=== PATIENT | female | born 1930 | race Caucasian/White ===

== ENCOUNTER 2016-10-06 08:12 | Observation (INO) | payer MEDICARE, OTHER ==
[~2016-10-06] VITALS: Ht 160 cm; Wt 43.3 kg
[~2016-10-06 08:12] MED LIST: AMLODIPINE BES10 MG PO; AMLODIPINE10 M2 PO; ASPIRIN 325MG325 MG PO; DORZOLAMIDE HYD10 M1 OP; LUMIGAN 2.5 ML2.5 M1 OP; MEDROL 4MG. DOSE4 MG PO; NIACIN250 MG PO; ULTRAM 50 MG TA50 MG PO
[2016-10-06 08:16] VITALS: BP 142/105
--- NOTE | 2016-10-06 08:34 | Emergency Room Report ---
History of Present Illness Time Seen by MD Guardado Presenting Problem in Triage Pt arrived:Walked Presenting Problem:Pt states she has been dizzy and nausea since friday, pt denies any vommitting. 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 N Clinical Suspician of Infection? N Mental Status: 1 - Regular (Normal Baseline) Sepsis Risk:Low Sepsis Risk Have you (or family members/close friends) recently traveled outside the [place]? N If Yes, where/when: Have you had exposure to infectious disease within the past month? N TB? Other? Specify: Source patient, RN notes reviewed, family, old records Exam Limitations no limitations Comment wf this week having episodes of dizzyness and nausea with no syncope or chest pain and no neuro sx otherwise reported Cardiac Chest Pain Chest pain indicative of cardiac No Timing/Duration this morning Severity moderate ALLERGIES Coded Allergies: MDX - Acetaminophen (From LORTAB 5/325) (01/04/15) MDX - Hydrocodone (From LORTAB 5/325) (01/04/15) Home Medications Reported Medications Amlodipine Besylate (Amlodipine) 5 MG PO DAILY Niacin (Niacin Sr 250MG Cap) 250 MG PO DAILY Bimatoprost (Lumigan 0.1% Ophth Soln) 1 DROP OP QHS DORZOLAMIDE HCL (Trusopt) 1 DROP OP BID History Medical History General CAD? No Angina: No LA: No Hypertension? Yes Hyperlipidemia? No CHF? No DVT? No PE? No COPD? No Asthma? No Anemia? No GERD? No Gastric ulcers? No GI Bleed? No Hernia? No Thyroid Problems? No Hypothyroidism? No CVA? No Seizures? No Diabetes? No Renal Insuffiency? No End Stage Renal Disease? No UTI? No Stones? No BPH? No GB Disease: No Nephritic Syndrome? No Asplenia? No Hepatitis? No Sickle Cell Disease? No Arthritis? No Migraines? No Cataracts? Yes Glaucoma? Yes MRSA? No HIV? No TB? No Anxiety? No Depression? No Cancer? No More? No Additional hx: 1. Diverticulitis 2. Bilateral Detached retinas Immunization Hx DT/Tetanus 5-10 Years Ago Flu [id number] Flu Season Pneumonia Received In Past Surgical Hx Previous Surgery?Y R FOOT NECK SX Family History Family Hx Diabetes No CAD No Hypertension Yes Hyperlipidemia No Cancer No TB No Social History Smoking Hx Smoker: Never Smoker Tobacco: No Type N/A Packs/day N/A Are you/the child exposed to second-hand smoke: No Alcohol Alcohol: No Drugs none Review of Systems All Other Systems Reviewed and Negative Constitutional see HPI, denies fever, weakness Eyes denies drainage ENT denies: ear discharge, epistaxis, throat pain. Respiratory denies cough, denies shortness of breath, denies wheezing Cardiovascular denies chest pain, denies palpitations, denies syncope Gastrointestinal see HPI, denies abdominal pain, nausea, denies vomiting Genitourinary denies: dysuria, frequency, hesitancy, hematuria. Musculoskeletal denies back pain, denies joint pain, denies neck pain Skin denies rash Psychiatric/Neurological see HPI, denies headache, denies seizure, other Physical Exam Vital Signs Vital Signs Date Time Temp Pulse Resp B/P Pulse O2 O2 Flow FiO2 Ox Delivery Rate 10/06 0902 83 20 126/83 98 / 0816 98.2 72 20 142/105 98 - WBC >12,000 or <4,000 or 10% bands? 2 or more SIRS Criteria Met? B/P:126/83 MAP:117 Creatinine >2.0? UA output<0.5ml/kg/hr for 2 hrs? Platelet count >100,000? Lactate >2.0mmol/1? INR >1.2 or PTT > than 60 sec? Evidence of Organ Dysfunction? Provider documented clinical suspician of infection? N Sepsis Criteria Count: 1 Sepsis Risk: Low Sepsis Risk General Appearance no apparent distress Eye Exam - bilateral eye PERRL, bilateral eye EOMI Comment no nystagmus Ear, Nose, Throat normal ENT inspection, no evid of tongue biting Neck non-tender, pos bruit or transmitted murmur Respiratory Status No: respiratory distress. Lung Sounds bilateral: lungs clear. Cardiovascular systolic murmur, gallop/S4, irregularly irregular Peripheral Pulses Pulses normal Yes Gastrointestinal soft Extremities normal inspection Strength 4 Upper Ext (L), 4 Upper Ext (R), 4 Lower Ext (L), 4 Lower Ext (R) Neurologic alert, training facilitator II-XII nml as tested, no motor/sensory deficits Glascow Coma Scale Glascow Coma Scale Response Value EYE response: 4 Spontaneously 4 MOTOR response: 6 OBEYS 6 VERBAL response: 5 Oriented & Converses 5 Total 15 Reflexes Reflexes normal No Mental status normal mood/affect Skin intact Medical Decision Making LABS/Meds/Orders Pt receiving controlled substance in ED? No Results/Orders Laboratory Tests 10/06/16 0900: Urine Color YELLOW, Urine Appearance CLEAR, Urine pH 7.5, Ur Specific [place] 1.010, Urine Protein NEGATIVE, Urine Ketones NEGATIVE, Urine Blood TRACE-INTACT, Urine Nitrate NEGATIVE, Urine Bilirubin NEGATIVE, Urine Urobilinogen 0.2, Ur Leukocyte Esterase NEGATIVE, Urine RBC OCC, Urine WBC OCC, Ur Squamous Epith Cells OCC, Urine Bacteria 2+, Urine Mucus 2+, Urine Glucose NEGATIVE 10/06/16 08: TSH 1.34, Thyroxine (T4) 7.5 10/06/16 08: Sodium 134 L, Potassium 4.0, Chloride 98, Carbon Dioxide 30, BUN 12, Creatinine 0.6, Estimated Creat Clear 49 L, Estimated GFR (MDRD) 95, Glucose 97, Calcium 9.3, Total Bilirubin 0.6, AST 18, ALT 22, Alkaline Phosphatase 83, Creatine Kinase 92, CK-MB (CK-2) Rel Index 2.3, CK and CKMB Interp 2.1, Troponin I < 0.02 , Total Protein 8.1, Albumin 3.9, Globulin 4.2 H, Albumin/Globulin Ratio 0.9 L , WBC 4.9, RBC 3.83 L, Hgb 12.5, Hct 39.0, MCV 102.0 H, RDW 12.5, Plt Count 375, MPV 5.3 L, Gran % 78.0, Gran # 3.8, Lymphocytes % 14.0, Monocytes % 7.1, Eosinophils % 0.4, Basophils % 0.5, Lymphocytes # 0.7, Monocytes # 0.3, Eosinophils # 0.0, Basophils # 0.0, PUBS MCHC 32.0, MCH 32.6 H Current Medication Orders Sig/Carly Start time Last Medication Dose Route Stop Time Status Admin Sodium Chloride 10 ML PRN PRN 10/06 829 AC IV 10/08 823 Orders Procedure Date/time Status DIET-NOTHING BY MOUTH 10/06 L Active Decision to admit 10/06 930 Active SED RATE 06/04 0915 Active FOLIC ACID (FOLATE, SERUM) 10/06 09 Active VITAMIN B12 10/06 09 Active CULTURE, URINE 10/06 0900 Active THYROID STIMULATING HORMONE 10/06 08 Complete THYROXINE (T4) 10/06 08 Complete ELECTROCARDIOGRAM REQUEST 10/[address] HEAD REQ 10/06 08 Complete IV SALINE LOCK 10/07 823 Active URINALYSIS/COMPLETE 10/07 823 Complete CBC WITH AUTO DIFF 10/07 823 Complete CARDIAC ENZYMES 10/07 823 Complete CHEM 12 PROFILE 10/06 08 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 ST/Twave chgs XRAY/CT/US XRAY/CT/US 1 XRAY chest XR interpretation by reviewed by me Xray Results abnormal (lt lung lesion) XRAY/CT/US [address] interpretation by discussed w/radiologist Time results known: 09 CT Results abnormal (chronic) Departure Departure Time of Disposition 09 Disposition Still a Patient Clinical Impression Primary Impression: Dizziness Secondary Impressions: A-fib Qualifiers: Atrial fibrillation type: chronic Qualified Code: I48.2 - Chronic atrial fibrillation Condition STABLE Referrals Alejandro Lagos MD (Family) discussed with dr lagos ED Critical Care Critical Care No at 0938
--- OUTSIDE RECORDS SUMMARY | 2016-10-06 08:37 | External Medical Summary Rpt ---
Author Author [employer] Organization [employer] Address Unknown Phone Unavailable Purpose Continuity of Care Document - through 2016
--- OUTSIDE RECORDS SUMMARY | 2016-10-06 08:37 | External Medical Summary Rpt ---
Author Author , Organization [employer] Address Unknown Phone Unavailable Purpose Continuity of Care Document - through 2016 Problems Code Diagnosis DOS Provider Status 235.7 T88.7XXA UNSP ADVERSE EFFECT OF DRUG OR MEDICAMENT, INIT ENCNTR
--- OUTSIDE RECORDS SUMMARY | 2016-10-06 08:37 | External Medical Summary Rpt ---
Author Author [employer], [employer] Organization [employer] Address Unknown Phone Unavailable
--- OUTSIDE RECORDS SUMMARY | 2016-10-06 08:37 | External Medical Summary Rpt ---
Author Author , Organization [employer] Address Unknown Phone Unavailable Purpose Continuity of Care Document - 07-07-1996 through 2016 Immunization Name Date Route CVX Reacti Commen Provid Is Given on t er Refuse d PCV13 Histor FAMCAR No 2017 ical EPSCOU Inform ation - Source Unspec ified Td 9 Histor H196 No (adult 1996 uscula ical ), r Inform adsorb ation ed - Source Unspec ified
[2016-10-06 08:46] LABS: HEMOGLOBIN 12.5 g/dL (12.2-16.2); LYMPH # 0.7 K/mm3 (0.7-4.5)
[2016-10-06 08:58] LABS: BUN 12 mg/dL (7-18); GFR (ESTIMATED) 95 ML/MIN (59-)
--- NOTE | 2016-10-06 08:59 | RADIOLOGY REPORT PS360 ---
CT HEAD W/O CONTRAST COMPARISON: CT scan of the brain noncontrast 02/27/2008 HISTORY: Dizziness and nausea TECHNIQUE: Multiple axial scans obtained from base skull to the vertex and were performed without IV contrast. FINDINGS: The base of skull appears normal. The mastoids are clear. The basilar cisterns are mildly prominent but normal for age. The ventricular system is normal. There is no bleed and there is no definite ischemic infarct. There are prominent reticular hypodensities consistent with chronic ischemic white matter changes. The sylvian fissures and cortical sulci are mildly prominent. There is no extra-axial fluid collection. The bony calvarium appears intact. IMPRESSION: Findings of age-appropriate cortical atrophy with prominent bilateral periventricular chronic ischemic white matter changes, no definite acute intracranial pathology identified
[2016-10-06 09:04] LABS: URINE BILIRUBIN - DIPSTICK NEGATIVE (NEG); URINE BLOOD TRACE-INTACT (NEG)
[2016-10-06 09:11] LABS: URINE SQUAMOUS CELLS OCC #/hpf (0-5)
--- NOTE | 2016-10-06 09:34 | RADIOLOGY REPORT PS360 ---
CHEST(2 VIEWS-NOT PORTABLE) COMPARISON: PA and lateral chest 10/03/2016 HISTORY: Dizziness TECHNIQUE: PA and lateral chest FINDINGS: Mild to moderate emphysematous changes again noted with hyperexpansion lung redding and flattening of the hemidiaphragms. Again noted is a subtle ill-defined opacity in the left lateral lung field likely resenting post inflammatory scarring. There is apical pleural-parenchymal scarring bilaterally. I see no acute infiltrate. Cardiac size is normal and the vascularity is normal. There are prominent degenerative changes in both shoulders right side worse than left. There is generalized osteopenia of the thoracic spine with mild diffuse dextroscoliotic curvature noted. There has been previous anterior cervical fusion. IMPRESSION: Moderate COPD no definite acute chest pathology noted
--- OUTSIDE RECORDS SUMMARY | 2016-10-06 09:36 | External Medical Summary Rpt ---
Author Author , Organization [employer] Address Unknown Phone Unavailable Purpose Continuity of Care Document - 10-06-2016 through 2016 Problems Code Diagnosis DOS Provider Status 235.7 T88.7XXA UNSP ADVERSE EFFECT OF DRUG OR MEDICAMENT, INIT ENCNTR Results Labs Lab Lab Date Result Refere Interp Status Commen Order Detail nces retati t Range on Urinalysis dipstick W Reflex Microscopic panel in Urine (10-06-2016 09:00) Bacteri 2+ O complet a 017 ed [Presen 09:00 ce] in Urine sedimen t by Light microsc opy Mucus 2+ OCC complet [Presen 017 ed ce] in 09:00 Urine sedimen t by Light microsc opy Erythro OCC 0 complet cytes 017 ed [Presen 09:00 ce] in Urine sedimen t by Light microsc opy Epithel OCC 0#/hp complet ial 017 f - ed cells.s 09:00 5#/hp quamous f [Presen ce] in Urine sedimen t by Microsc opy high power field Urinalysis dipstick W Reflex Microscopic panel in Urine (10-06-2016 09:00) Appeara CLEAR CLEAR complet nce of 017 ed Urine 09:00 Bilirub NEGATIV NEG complet in 017 E ed [Presen 09:00 ce] in Urine by Test strip Erythro TRACE-I NEG complet cytes 017 NTACT ed [Presen 09:00 ce] in Urine Color YELLOW YELLOW complet of 017 ed Urine 09:00 Ketones NEGATIV NEG complet 017 E ed [Presen 09:00 ce] in Urine by Automat ed test strip Mucus NEGATIV NEG complet [Presen 017 E ed ce] in 09:00 Urine sedimen t by Light microsc opy Nitrite NEGATIV NEG complet 017 E ed [Presen 09:00 ce] in Urine by Test strip Urobili 0.2 NEG complet nogen 017 ed [Presen 09:00 ce] in Urine by Test strip
--- OUTSIDE RECORDS SUMMARY | 2016-10-06 09:36 | External Medical Summary Rpt ---
Author Author [employer], [employer] Organization [employer] Address Unknown Phone Unavailable Results Urinalysis dipstick W Reflex Microscopic panel in Urine Observa Value Referen Units Interpr Notes Date tion ce etation Range Appeara CLEAR CLEAR No No No Oct 4 nce of informa informa informa 2017 Urine tion in tion in tion in 9:00 AM source source source data data data Bacteri 2+ O No No No Oct 06 a informa informa informa 2016 [Presen tion in tion in tion in 9:00 AM ce] in source source source Urine data data data sedimen t by Light microsc opy Bilirub NEGATIV NEG No No No Oct 06 in E informa informa informa 2016 [Presen tion in tion in tion in 9:00 AM ce] in source source source Urine data data data by Test strip Erythro TRACE-I NEG No No No Oct 06 cytes NTACT informa informa informa 2016 [Presen tion in tion in tion in 9:00 AM ce] in source source source Urine data data data Color YELLOW YELLOW No No No Oct 06 of informa informa informa 2017 Urine tion in tion in tion in 9:00 AM source source source data data data Glucose NEG No No No Oct 06 [Mass/vol informati informati informati 2017 9:00 ume] in on in on in on in AM Urine by source source source Test data data data strip Ketones NEGATIV NEG mg/dL No No Oct 4 E informa informa 2017 [Presen tion in tion in 9:00 AM ce] in source source Urine data data by Automat ed test strip Mucus NEGATIV NEG No No No Oct 4 [Presen E informa informa informa 2016 ce] in tion in tion in tion in 9:00 AM Urine source source source sedimen data data data t by Light microsc opy Mucus 2+ OCC No No No Oct 4 [Presen informa informa informa 2016 ce] in tion in tion in tion in 9:00 AM Urine source source source sedimen data data data t by Light microsc opy Nitrite NEGATIV NEG No No No Sabino 4 E informa informa informa 2016 [Presen tion in tion in tion in 9:00 AM ce] in source source source Urine data data data by Test strip pH of 5.0 - 8.5 No Normal No Sabino 4 Urine informati informati 2017 9:00 on in on in AM source source data data Protein NEG mg/dL No No Sabino 4 [Mass/vol informati informati 2017 9:00 ume] in on in on in AM Urine by source source Automated data data test strip Erythro OCC 0 rbc/hpf No No Sabino 4 cytes informa informa 2016 [Presen tion in tion in 9:00 AM ce] in source source Urine data data sedimen t by Light microsc opy Specific 1.005 - No Normal No Oct 06 gravity 1.030 informati informati 2017 9:00 of Urine on in on in AM source source data data Epithel OCC 0 - 5 #/hpf No No Sabino 4 ial informa informa 2017 cells.s tion in tion in 9:00 AM quamous source source data data [Presen ce] in Urine sedimen t by Microsc opy high power field Urobili 0.2 NEG E.U./dL No No Sabino 4 nogen informa informa 2016 [Presen tion in tion in 9:00 AM ce] in source source Urine data data by Test strip Leukocyte O wbc/hpf No No Sabino 4 s informati informati 2017 9:00 [#/volume on in on in AM ] in source source Urine data data Urinalysis dipstick W Reflex Microscopic panel in Urine Observa Value Referen Units Interpr Notes Date tion ce etation Range Appeara CLEAR CLEAR No No No Sabino 4 nce of informa informa informa 2017 Urine tion in tion in tion in 9:00 AM source source source data data data Bilirub NEGATIV NEG No No No Sabino 4 in E informa informa informa 2017 [Presen tion in tion in tion in 9:00 AM ce] in source source source Urine data data data by Test strip Erythro TRACE-I NEG No No No Sabino 4 cytes NTACT informa informa informa 2016 [Presen tion in tion in tion in 9:00 AM ce] in source source source Urine data data data Color YELLOW YELLOW No No No Sabino 4 of informa informa informa 2017 Urine tion in tion in tion in 9:00 AM source source source data data data Glucose NEG No No No Sabino 4 [Mass/vol informati informati informati 2016 9:00 ume] in on in on in on in AM Urine by source source source Test data data data strip Ketones NEGATIV NEG mg/dL No No Sabino 4 E informa informa 2016 [Presen tion in tion in 9:00 AM ce] in source source Urine data data by Automat ed test strip Mucus NEGATIV NEG No No No Sabino 4 [Presen E informa informa informa 2016 ce] in tion in tion in tion in 9:00 AM Urine source source source sedimen data data data t by Light microsc opy Nitrite NEGATIV NEG No No No Sabino 4 E informa informa informa 2016 [Presen tion in tion in tion in 9:00 AM ce] in source source source Urine data data data by Test strip pH of 5.0 - 8.5 No Normal No Sabino 4 Urine informati informati 2017 9:00 on in on in AM source source data data Protein NEG mg/dL No No Sabino 4 [Mass/vol informati informati 2017 9:00 ume] in on in on in AM Urine by source source Automated data data test strip Specific 1.005 - No Normal No Sabino 4 gravity 1.030 informati informati 2017 9:00 of Urine on in on in AM source source data data Urobili 0.2 NEG E.U./dL No No Sabino 4 nogen informa informa 2017 [Presen tion in tion in 9:00 AM ce] in source source Urine data data by Test strip Thyroxine (T4) [Mass/volume] in Serum or Plasma Observa Value Referen Units Interpr Notes Date tion ce etation Range Thyroxine 4.7 - ug/dl Normal No Sabino 4 (T4) 13.3 informati 2017 8:20 [Mass/vol on in AM ume] in source Serum or data Plasma Thyrotropin [Units/volume] in Serum or Plasma Observa Value Referen Units Interpr Notes Date tion ce etation Range Thyrotrop 0.358 - uIU/ml Normal No Oct 4 in 3.740 informati 2016 8:20 [Units/vo on in AM lume] in source Serum or data Plasma CBC W Auto Differential panel in Blood Observa Value Referen Units Interpr Notes Date tion ce etation Range Basophils 0 - 0.2 K/MM3 Normal No Sabino 4 informati 2016 8:20 [#/volume on in AM ] in source Blood by data Automated count Basophils 0.1 - 2.0 % Normal No Sabino 4 /100 informati 2016 8:20 leukocyte on in AM s in source Blood by data Automated count Eosinophi 0.0 - 0.4 K/mm3 Normal No Oct 4 ls informati 2016 8:20 [#/volume on in AM ] in source Blood by data Automated count Eosinophi 0.1 - % Normal No Oct 4 ls/100 12.0 informati 2016 8:20 leukocyte on in AM s in source Blood by data Automated count Granulocy 1.8 - 7.8 K/mm3 Normal No Oct 4 xiomy informati 2016 8:20 [#/volume on in AM ] in source Blood by data Automated count Granulocy 37.0 - % Normal No Oct 4 xiomy/100 80.0 informati 2016 8:20 leukocyte on in AM s in source Blood by data Automated count Hematocri 37.0 - % Normal No Oct 4 t [Volume 47.0 informati 2016 8:20 on in AM Fraction] source of Blood data Hemoglobi 12.2 - g/dL Normal No Oct 06 n 16.2 informati 2016 8:20 [Mass/vol on in AM ume] in source Blood data Lymphocyt 0.7 - 4.5 K/mm3 Normal No Oct 4 es informati 2016 8:20 [#/volume on in AM ] in source Unspecifi data ed specimen by Automated count Lymphocyt 10 - 50.0 % Normal No Oct 06 es informati 2016 8:20 [#/volume on in AM ] in source Unspecifi data ed specimen by Automated count Erythrocy 27 - 31.2 pg High No Oct 4 te mean informati 2016 8:20 corpuscul on in AM ar source hemoglobi data n [Entitic mass] Erythrocy 31.8 - g/dl Normal No Sabino 4 te mean 35.4 informati 2016 8:20 corpuscul on in AM ar source hemoglobi data n concentra tion [Mass/vol ume] by Automated count Erythrocy 82.2 - fl High No Oct 4 te mean 97.8 informati 2016 8:20 corpuscul on in AM ar volume source [Entitic data volume] by Automated count Monocytes 0.1 - 1.0 K/mm3 Normal No Sabino 4 inform2016 8:20 [#/volume on in AM ] in source Blood by data Automated count Monocytes 1.7 - 9.3 % Normal No Sabino 4 /100 informati 2017 8:20 leukocyte on in AM s in source Blood by data Automated count Platelet 7.4 - fl Low No Oct 4 mean 10.4 informati 2016 8:20 volume on in AM [Entitic source volume] data in Blood by Automated count Platelets 142 - 424 K/mm3 Normal No Sabino 4 inform2016 8:20 [#/volume on in AM ] in source Blood data Erythrocy 4.2 - 5.4 M/mm3 Low No Oct 4 xiomy informati 2016 8:20 [#/volume on in AM ] in source Amniotic data fluid Erythrocy 11.5 - % Normal No Oct 4 te 17.5 informati 2017 8:20 distribut on in AM ion width source [Entitic data volume] by Automated count Leukocyte 4.8 - K/MM3 Normal No Sabino 4 s 10.8 informati 2016 8:20 [#/volume on in AM ] in source Blood data
[2016-10-06 10:59] VITALS: BP 134/87
--- NOTE | 2016-10-06 12:52 | HISTORY AND PHYSICAL REPORT ---
History and Physical ([facility]) Date of admission: 10/06/16 Chief complaint: Dizziness History: History of Present Illness: Ms. Romeo is an 86-year-old white female with history of chronic atrial fibrillation and hypertension who has been having intermittent bouts of dizziness and nausea for the past 5 days. This came on abruptly last Friday and it has been occurring off and on since then. She had a bout this morning that lasted approximately 30 minutes which prompted her to come to the emergency room. She denies true vertigo. She feels unsteady on her feet. She denies vomiting. No ear pain or change in her hearing. No complaints of headaches. She has noticed some deterioration of her vision but this is a chronic issue related to detached retina. She does not feel dizzy at the present time. She has a known history of chronic atrial fibrillation with controlled rate. She has been advised to take aspirin in the past but does not do this. She denies chest pain, palpitations, or shortness of breath. She is also known to have aortic stenosis by previous echo 2 years ago in [place] which showed a gradient of 26 mm. Workup in the emergency room was fairly unremarkable. Laboratory data satisfactory. EKG showed chronic atrial fibrillation. Chest x-ray showed no acute findings. Noncontrast CT scan of the head also was unremarkable. Past Medical History: Medical History: CAD? No Angina: No NE: No Hypertension? Yes Hyperlipidemia? No CHF? No DVT? No PE? No COPD? No Asthma? No Anemia? No GERD? No Gastric ulcers? No GI Bleed? No Hernia? No Thyroid Problems? No Hypothyroidism? No CVA? No Seizures? No Diabetes? No Renal Insuffiency? No UTI? No Stones? No BPH? No GB Disease: No Nephritic Syndrome? No Asplenia? No Hepatitis? No Sickle Cell Disease? No Arthritis? No Migraines? No Cataracts? Yes Glaucoma? Yes MRSA? No HIV? No TB? No Anxiety? No Depression? No Cancer? No More? No Additional hx: 1. Chronic Atrial Fibrillation 2. Aortic stenosis 3. Diverticulosis 4. Bilateral Detached retinas Surgical history: Previous Surgery?Y Detached retina. NECK SX . Hemorrhoids. Repair of right wrist fracture Medications: Reported Medications Amlodipine Besylate (Amlodipine) 10 MG PO DAILY Niacin (Niacin Sr 250MG Cap) 250 MG PO DAILY Bimatoprost (Lumigan 0.1% Ophth Soln) 1 DROP OP QHS DORZOLAMIDE HCL (Trusopt) 1 DROP OP BID Allergies: Coded Allergies: hydrocodone (UNKNOWN 10/06/16) Family History: Family history: Postive for: CAD (father and siblings), stroke (mother). Social History: Smoking Hx Tobacco: No Smoker: Former Smoker Type: N/A Packs/day: N/A Are you exposed to second hand No Alcohol: Alcohol: No Hx of Drug Use: Drug Use? No Patien't marital status is: Patient's support system is: good Patient's occupation: Retired Recent travel: None Review of Systems: Patient unresponsive? No Constitutional Positive for: weak. No: recent weight loss. ENT Positive for: hearing loss. No: ear ache, ear drainage, nasal congestion, ear ringing. Cardiovascular Positive for: edema. No: chest pain, orthopnea, palpitations. Respiratory No: hemoptysis, pleuritic pain, productive cough (sputum). GI Positive for: nausea. No: abdominal pain, constipation, diarrhea, dysphagia, melena, vomitting. (female) No: frequency, hematuria. Skin No: bruising, itching. Neurological Positive for: dizziness, vision change. No: change in LOC, confusion, headache, syncope. Eyes Positive for: vision loss. No: eye pain. Musculoskeletal Positive for: extremity swelling. Psychiatric No: anxious, confused, depression. Physical Exam: Vital signs: 1ST Vital Signs Result Date Time Pulse Ox 98 10/06 0816 B/P 142/105 10/06 0816 Temp 98.2 10/06 0816 Pulse 72 10/06 0816 Resp 20 10/06 0816 O2 Delivery ROOM AIR 10/06 1059 Exam: General appearance: sitting up in bed, alert and in NAD Eyes: anicteric, conjunctiva clear, EOM's w/normal ROM ENT: mucous membranes moist, tympanic membranes normal, edentulous with full dentures Neck: supple, no adenopathy or thyromegaly. Bilateral carotid bruits, R>L (? 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, normal mood/affect, oriented Lab data: Labs: Laboratory Tests 10/06/16 0900: Urine Color YELLOW, Urine Appearance CLEAR, Urine pH 7.5, Ur Specific [place] 1.010, Urine Protein NEGATIVE, Urine Ketones NEGATIVE, Urine Blood TRACE-INTACT, Urine Nitrate NEGATIVE, Urine Bilirubin NEGATIVE, Urine Urobilinogen 0.2, Ur Leukocyte Esterase NEGATIVE, Urine RBC OCC, Urine WBC OCC, Ur Squamous Epith Cells OCC, Urine Bacteria 2+, Urine Mucus 2+, Urine Glucose NEGATIVE 10/06/16 0820: TSH 1.34, Thyroxine (T4) 7.5, ESR 17 10/06/16 0820: Sodium 134 L, Potassium 4.0, Chloride 98, Carbon Dioxide 30, BUN 12, Creatinine 0.6, Estimated Creat Clear 49 L, Estimated GFR (MDRD) 95, Glucose 97, Calcium 9.3, Total Bilirubin 0.6, AST 18, ALT 22, Alkaline Phosphatase 83, Creatine Kinase 92, CK-MB (CK-2) Rel Index 2.3, CK and CKMB Interp 2.1, Troponin I < 0.02 , Total Protein 8.1, Albumin 3.9, Globulin 4.2 H, Albumin/Globulin Ratio 0.9 L , WBC 4.9, RBC 3.83 L, Hgb 12.5, Hct 39.0, MCV 102.0 H, RDW 12.5, Plt Count 375, MPV 5.3 L, Gran % 78.0, Gran # 3.8, Lymphocytes % 14.0, Monocytes % 7.1, Eosinophils % 0.4, Basophils % 0.5, Lymphocytes # 0.7, Monocytes # 0.3, Eosinophils # 0.0, Basophils # 0.0, PUBS MCHC 32.0, MCH 32.6 H Microbiology 10/06 09 URINE CC: Urine Culture - RECD Radiology results: Results: Head CT: IMPRESSION: Findings of age-appropriate cortical atrophy with prominent bilateral periventricular chronic ischemic white matter changes, no definite acute intracranial pathology identified CXR: FINDINGS: Mild to moderate emphysematous changes again noted with hyperexpansion lung redding and flattening of the hemidiaphragms. Again noted is a subtle ill-defined opacity in the left lateral lung field likely resenting post inflammatory scarring. There is apical pleural-parenchymal scarring bilaterally. I see no acute infiltrate. Cardiac size is normal and the vascularity is normal. There are prominent degenerative changes in both shoulders right side worse than left. There is generalized osteopenia of the thoracic spine with mild diffuse dextroscoliotic curvature noted. There has been previous anterior cervical fusion. IMPRESSION: Moderate COPD no definite acute chest pathology noted Diagnosis(es): 1. Dizziness 2. Chronic atrial fibrillation 3. Aortic stenosis 4. HBP (high blood pressure) 5. Carotid bruit Plan: She is admitted for further observation and evaluation. Concern is that she may now be having symptomatic aortic stenosis. Her atrial fibrillation seems well controlled although she is not taking any specific treatment. She has been prescribed aspirin in the past but does not take this. We'll also plan to check carotid Dopplers and consult cardiology. at 1341
[2016-10-06 13:32] VITALS: BP 128/83
[2016-10-06 15:57] VITALS: BP 132/74
[2016-10-06 20:23] VITALS: BP 127/73
[2016-10-06 21:30] VITALS: BP 127/73
[2016-10-07 04:00] VITALS: BP 141/91
--- NOTE | 2016-10-07 07:13 | PHARMACY CLINIC NOTE ---
Patient Demographics Patient Demographics Admission date: 10/06/16 Date: 10/07/16 Time: 07 Allergies Coded Allergies: hydrocodone (UNKNOWN 10/06/16) HEIGHT- FT: 5 IN: 3.00 K.318 VTE General Information Labs: Laboratory Tests 10/06 0820 Hematology Hgb (12.2 - 16.2 g/dL) 12.5 Hct (37.0 - 47.0 %) 39.0 Plt Count (142 - 424 K/mm3) 375 Disclaimer The following section includes nursing documentation that has been pulled in for pharmacy review. Patient's VTE score: 1 Patient's VTE Risk: VERY LOW RISK Clinical trial participant? No VTE prophylaxis [id number] VTE prophylaxis ordered? Yes Type of prophylaxis/treatment: PETR at 0713
[2016-10-07 07:37] LABS: HEMOGLOBIN 12.6 g/dL (12.2-16.2); LYMPH # 0.8 K/mm3 (0.7-4.5); LYMPH % 18.7 % (10-50.0)
[2016-10-07 08:00] VITALS: BP 136/73
--- NOTE | 2016-10-07 08:21 | ACUTE CARE PROGRESS NOTE (QUA) ---
See Addendum Progress Notes Subjective Date 10/07/16 Time 0820 Note Rested fairly well. No further dizzy spells. No nausea or chest pain. Objective Findings Laboratory Tests 10/07/16 0635: Sodium 136, Potassium 3.9, Chloride 101, Carbon Dioxide 27, BUN 11, Creatinine 0.5 L, Estimated Creat Clear 57, Estimated GFR (MDRD) 118, Glucose 92, Calcium 8.6, WBC 4.3 L, RBC 3.82 L, Hgb 12.6, Hct 39.0, MCV 102.2 H, RDW 12.9, Plt Count 345, MPV 5.3 L, Gran % 74.5, Gran # 3.2, Lymphocytes % 18.7, Monocytes % 5.2, Eosinophils % 1.1, Basophils % 0.5, Lymphocytes # 0.8, Monocytes # 0.2, Eosinophils # 0.1, Basophils # 0.0, PUBS MCHC 32.4, MCH 33.1 H Last VS-Temp:97.5 B/P:136/73 Pulse:64 Resp:18 SaO2:96 ROOM AIR Last weight lbs:95 oz:8 K.318 Method:Bed Scales Exam General appearance: alert, no acute distress Eyes: anicteric Neck: bilateral carotid bruits, R>L Cardiovascular: irregularly irregular, Grade 2/6 systolic murmur Extremities: no peripheral edema Assessment/Plan Problem List 1. Dizziness 2. Chronic atrial fibrillation 3. Aortic stenosis 4. HBP (high blood pressure) 5. Carotid bruit Plan: Awaiting echo and carotid studies. Cardiology to see today. This inpt stay is expected to cross 2 MNs from start of care No at 5031
[2016-10-07 09:08] VITALS: BP 136/73
--- NOTE | 2016-10-07 09:47 | CONSULT NOTE ---
Standard Demographics Patient Demo Date of Consultation: 10/07/16 Referring Provider: Ajit Burleson MD Reason for Consultation: Aortic Stenosis, Dizziness PRIMARY DIAGNOSIS: DIZZINESS Problem list Problem list: 1. Hypertension 2. Chronic atrial fibrillation 3. Aortic stenosis 4. Abnormal electrocardiogram with anteroseptal infarct pattern. No old electrocardiograms for comparison. History of present illness: History of present illness: 86-year-old white female with known chronic atrial fibrillation and aortic stenosis was admitted for 2 episodes of sudden onset of weakness and dizziness and lightheadedness in the last week. Both of occurred while in her kitchen fixing breakfast. Symptoms were brief in duration and were not accompanied by noticeable chest pain or near syncope/syncope. Patient was admitted through the emergency department for evaluation. Troponins normal thus far. Electrocardiogram is atrial fibrillation with controlled ventricular response and anteroseptal infarct pattern, Age undetermined.. Cardiology consulted for evaluation and recommendations. Past Medical History: General: Hypertension Yes CVA No Seizures No TB No COPD No Asthma No Diabetes No Angina No [place] No Hyperlipidemia No Urinary No Cancer No Rheumatic H.D. No Ulcers No MRSA No GB Disease No Other DIVITTERCULITIS Additional hx 1. Chronic Atrial Fibrillation 2. Aortic stenosis 3. Diverticulosis 4. Bilateral Detached retinas Past Surgical HX: Previous Surgery?Y R FOOT NECK SX Allergies Coded Allergies: hydrocodone (UNKNOWN 10/06/16) Home medications: Reported Medications Amlodipine Besylate (Amlodipine) 10 MG PO DAILY Niacin 250 MG PO DAILY DORZOLAMIDE HCL/TIMOLOL MALEAT (Dorzolamide-Timolol Eye Drops) 1 DROP OP BID ASPIRIN (Aspirin 325MG) 325 MG PO DAILY Latanoprost (Latanoprost 2.5 Ml) 1 DROP OP QHS #25 Brimonidine Tartrate (Brimonidine 0.2% Ophth Soln 5ML Bottle) 1 DROP OP Q8H #5 Current Medications: Current Medications Amlodipine Besylate 5 MG DAILY PO (DC) Niacin 250 MG DAILY PO (CAN) Niacin 500 MG DAILY PO Amlodipine Besylate 0 .STK-MED ONE .ROUTE (DC) Amlodipine Besylate 5 MG QHS PO Brimonidine Tartrate 1 DROP Q8 OP Dorzolamide/Timolol 1 DROP BID OP Latanoprost 1 DROP QHS OP Sodium Chloride 1,000 ML .STK-MED ONE IV (DC) Acetaminophen 650 MG Q4HP PRN PO Aspirin 325 MG ONCE ONE PO (DC) Ondansetron HCl 4 MG Q6HP PRN IV Sodium Chloride 1,000 ML .Q20H IV Aspirin 0 .STK-MED ONE .ROUTE (DC) Sodium Chloride 10 ML PRN PRN IV Immunization HX DT/Tetanus 5-10 Years Flu 2013-FSN Pneumonia RECEIVED IN PAST TB Test in last year No Family history Family HX Family Hx Insignificant No Diabetes No CAD No Hypertension Yes Hyperlipidemia No Cancer No TB No Social Hx: Smoking HX Tobacco No Type N/A Packs/day N/A Are you/the child exposed to second-hand smoke: No Alcohol Alcohol: No Hx of Drug Use Drug Use? No Review of systems: Constitutional see HPI, weakness. Respiratory No: no symptoms reported. Cardiovascular palpitations Gastrointestinal/Abdominal No no symptoms reported Genitourinary No: no symptoms reported. Musculoskeletal No: no symptoms reported. Neurological No: no symptoms reported. Exam: Admission Vital Signs: 1ST Vital Signs Result Date Time Pulse Ox 98 10/06 0816 B/P 142/105 / 0816 Temp 98.2 / 0816 Pulse 72 / 0816 Resp 20 / 0816 O2 Delivery ROOM AIR 10/06 1059 Last Vital Signs: Vital Signs Result Date Time Pulse Ox 96 / 0908 B/P 136/73 / 0908 Temp 97.5 / 0908 Pulse 64 / 0908 Resp 18 / 0908 O2 Delivery ROOM AIR 06/ 0800 Exam General appearance: alert, awake, no acute distress Neck: no carotid bruit, no JVD Cardiovascular: irregularly irregular, murmur Respiratory: decreased breath sounds bilaterally but Clear. ABD: soft, no tenderness Extremities: moves all, no peripheral edema Neuro: alert, intact, oriented Laboratory data: Laboratory Tests 10/07/16 0635: Sodium 136, Potassium 3.9, Chloride 101, Carbon Dioxide 27, BUN 11, Creatinine 0.5 L, Estimated Creat Clear 57, Estimated GFR (MDRD) 118, Glucose 92, Calcium 8.6, WBC 4.3 L, RBC 3.82 L, Hgb 12.6, Hct 39.0, MCV 102.2 H, RDW 12.9, Plt Count 345, MPV 5.3 L, Gran % 74.5, Gran # 3.2, Lymphocytes % 18.7, Monocytes % 5.2, Eosinophils % 1.1, Basophils % 0.5, Lymphocytes # 0.8, Monocytes # 0.2, Eosinophils # 0.1, Basophils # 0.0, PUBS MCHC 32.4, MCH 33.1 H 10/06/16 1920: Creatine Kinase 70, CK-MB (CK-2) Rel Index 1.7, CK and CKMB Interp 1.2, Troponin I < 0.02 10/06/16 1400: Creatine Kinase 64, CK-MB (CK-2) Rel Index 2.5, CK and CKMB Interp 1.6, Troponin I < 0.02 10/06/16 0900: Urine Color YELLOW, Urine Appearance CLEAR, Urine pH 7.5, Ur Specific [place] 1.010, Urine Protein NEGATIVE, Urine Ketones NEGATIVE, Urine Blood TRACE-INTACT, Urine Nitrate NEGATIVE, Urine Bilirubin NEGATIVE, Urine Urobilinogen 0.2, Ur Leukocyte Esterase NEGATIVE, Urine RBC OCC, Urine WBC OCC, Ur Squamous Epith Cells OCC, Urine Bacteria 2+, Urine Mucus 2+, Urine Glucose NEGATIVE 10/06/16 0820: TSH 1.34, Thyroxine (T4) 7.5, ESR 17 10/06/16 0820: Sodium 134 L, Potassium 4.0, Chloride 98, Carbon Dioxide 30, BUN 12, Creatinine 0.6, Estimated Creat Clear 49 L, Estimated GFR (MDRD) 95, Glucose 97, Calcium 9.3, Total Bilirubin 0.6, AST 18, ALT 22, Alkaline Phosphatase 83, Creatine Kinase 92, CK-MB (CK-2) Rel Index 2.3, CK and CKMB Interp 2.1, Troponin I < 0.02 , Total Protein 8.1, Albumin 3.9, Globulin 4.2 H, Albumin/Globulin Ratio 0.9 L , WBC 4.9, RBC 3.83 L, Hgb 12.5, Hct 39.0, MCV 102.0 H, RDW 12.5, Plt Count 375, MPV 5.3 L, Gran % 78.0, Gran # 3.8, Lymphocytes % 14.0, Monocytes % 7.1, Eosinophils % 0.4, Basophils % 0.5, Lymphocytes # 0.7, Monocytes # 0.3, Eosinophils # 0.0, Basophils # 0.0, PUBS MCHC 32.0, MCH 32.6 H Microbiology Date/Time Procedure - Status Source Growth 10/06 0900 Urine Culture - RES URINE CC Plan: Assessment: 1. Chronic atrial fibrillation with controlled ventricular response. Patient takes an aspirin only intermittently. CHADS-VASc score is at least 4 but no a/c due to ocular problems (macular degeneration) 2. Aortic stenosis 3. Hypertension 4. Abnormal electrocardiogram 5. COPD on CXR Recommendations: 1. Echo reviewed, aortic stenosis appears stable with EF preserved. Patient's symptoms seemed to be precipitated by nausea. Would recommend reducing norvasc to 2.5 mg daily. Would recommend outpatient monitor for 1-2 wks to evaluate for bradycardia. No further cardiac workup in hospital. at 1665
--- NOTE | 2016-10-07 09:52 | CARDIOVASCULAR REPORT ---
"Cerebrovascular Exam Indications: 785.9 Bruit. IMPRESSIONS 1. The bilateral vertebral arteries are patent with normal antegrade flow. 2. Study suggests 20-49% stenosis involving the right internal carotid artery and the left internal carotid artery. Carotid duplex study. Complete study and Doppler flow study including spectral analysis, color and ayon scale imaging. Height: Height: 152.4cm. Height: 60in. Weight: Weight: 44.5kg. Weight: 97.8lb. Body mass index: BMI: 19.1kg/m^2. Body surface area: BSA: 1.37m^2. Location: Vascular laboratory. Patient status: Inpatient. Tables: Arterial flow: + +--------+--------+ |Location |V sys |V ed | + +--------+--------+ |Right CCA - proximal|61.8cm/s|21.6cm/s| + +--------+--------+ |Right CCA - distal |63.9cm/s|27.2cm/s| + +--------+--------+ |Right ECA |91.7cm/s|--------| + +--------+--------+ |Right ICA - proximal|85.1cm/s|23.6cm/s| + +--------+--------+ |Right ICA - mid |119cm/s |42.5cm/s| + +--------+--------+ |Right ICA - distal |69.6cm/s|26.4cm/s| + +--------+--------+ |Right vertebral |63.2cm/s|--------| + +--------+--------+ |Left CCA - proximal |61.3cm/s|20cm/s | + +--------+--------+ |Left CCA - distal |73.9cm/s|25.5cm/s| + +--------+--------+ |Left ECA |64cm/s |--------| + +--------+--------+ |Left ICA - proximal |65.2cm/s|17.3cm/s| + +--------+--------+ |Left ICA - mid |59.3cm/s|26.7cm/s| + +--------+--------+ |Left ICA - distal |89.5cm/s|34.1cm/s| + +--------+--------+ |Left vertebral |58.5cm/s|--------| + +--------+--------+ Velocity ratios: + + + + + + | |Right, V sys|Right, V ed|Left, V sys|Left, V ed| + + + + + + |Max ICA/dist CCA|1.86 |1.56 |1.21 |1.34 | + + + + + + (Report amended ) Electronically signed by: Krishan Vu [id number]"
[2016-10-07] MEDS ORDERED: ASPIRIN 325MG325 MG PO (09:55)
[2016-10-07] MEDS ORDERED: LATANOPROST 2.2.5 ML OP (10:01)
[2016-10-07] MEDS ORDERED: BRIMONIDINE 0.2%5 ML OP (10:03)
--- NOTE | 2016-10-07 12:05 | RADIOLOGY REPORT PS360 ---
PROCEDURE: 2-D M-mode and color Doppler study INDICATIONS FOR THE TEST: Chest pain COPD Heart Murmur Tobacco Smoking Palpitations Fatigue Syncope Edema Hypertension+Diabetes Mellitus Rheumatic Fever SOB VALENTINE Obesity Hyperlipidemia Family History HD Additional History AFIB PATIENT INFORMATION HEIGHT: 60 WEIGHT:98 GENDER: Female B/P:142/105 2-D/M-MODE INTERPRETATION: 2-D MEASUREMENTS OBSERVED VALUES IN CMS Right Ventricular Dimension (RVDd) 2.6 Interventricular Septum (Thickness)(IVsd) 1.0 Left Ventricular Internal Dimensions(LVIDd) 3.9 Left Ventricular Posterior Wall (Thickness)(LVPWd) 0.6 Aortic Root 3.2 Aortic Cusp Separation 1.1 Left Atrial Dimensions (LAD) 3.6 2D 1. Left atrium is mildly enlarged, left ventricle is normal size, there is mild qualitative concentric left ventricular hypertrophy present, visually estimated ejection fraction of 50-55% with no obvious regional wall motion abnormality. 2. The right atrium is qualitatively mildly enlarged, the right ventricle is mildly dilated with normal contractility. 3. The aortic valve is thickened and calcified with restriction in the leaflet mobility, morphologically there appears to be at least moderate aortic stenosis. 4. The mitral valve leaflets are minimally thickened, there is mild mitral calcification present, there is no mitral stenosis. 5. The tricuspid valve is structurally normal. 6. The pulmonic valve is not well visualized. 7. No significant pericardial effusion noted. DOPPLER INTERROGATION: 1. The maximum aortic out flow velocity recorded study 3 m/s resulting in a mean gradient across the valve is 20 mmHg, morphologically there is at least moderate aortic stenosis, there is no aortic insufficiency present. 2. The mitral inflow velocity within normal range, there is no mitral stenosis, there is mild mitral regurgitation. 3. There is mild tricuspid regurgitation noted, tricuspid regurgitant jet velocity insufficient for calculation of the right ventricular systolic pressure. Diastolic parameters are inconclusive. CONCLUSION: 1. Biatrial enlargement, normal left ventricular size, mild concentric left ventricular hypertrophy, visually estimated ejection fraction of 50-55% with no obvious regional wall motion abnormality. 2. Thickened and calcified aortic valve, mean gradient across the valve is 20 mmHg, morphologically there is at least moderate aortic stenosis, there is no aortic insufficiency. 3. Mild mitral and tricuspid regurgitation, tricuspid regurgitant jet velocity insufficient for calculation of the right ventricular systolic pressure. 4. No significant pericardial effusion noted.
[2016-10-07 14:13] VITALS: BP 136/73
[2016-10-08 10:37] LABS: Folate (Folic Acid) >20.0 ng/mL (>3.0); Vitamin B12 513 pg/mL (211-946)
== END 2016-10-07 15:29 | disposition home or self-care (01) ==
LOC: ER 08:12 → 2ND 09:33 → ER 09:33 → 2ND 09:36
PROVIDERS: Emergency Medicine
DX: R42 Dizziness and giddiness (principal); I10 Essential (primary) hypertension; I48.2 Chronic atrial fibrillation; I35.0 Nonrheumatic aortic (valve) stenosis; N39.0 Urinary tract infection, site not specified
CPT/HCPCS: G0378